=== PATIENT | female | born 1960 | race Caucasian/White ===

== ENCOUNTER 2017-01-20 07:30 | Day surgery (SDC) | payer OTHER ==
[~2017-01-20] VITALS: Ht 162.6 cm; Wt 143.0 kg
[~2017-01-20 07:30] MED LIST: 0.9% Sodium Chloride 1,000 ML IV SCH; HYDR25TA4 PO; IBUP800T28 PO; Sodium Chloride LOK Flush 10 mL Syringe IV PRN; fentaNYL-PF 50 mCg/mL 2 mL Inj IVPUSH PRN
[2017-01-20 07:55] VITALS: BP 147/84; PULSE 82; RESP 14; O2SAT 96
[2017-01-20] MEDS ORDERED: RANI150C4 PO (08:01)
[2017-01-20 09:07] VITALS: BP 129/68; PULSE 76; RESP 14; O2SAT 93
[2017-01-20 09:16] VITALS: BP 117/57; PULSE 78; RESP 16; O2SAT 100
[2017-01-20 09:20] VITALS: BP 117/57; PULSE 78; RESP 16; O2SAT 98
--- NOTE | 2017-01-20 09:36 | ENDO ---
[address] [address] ENDOSCOPY PROCEDURE PATIENT: BLAINE DELANEY : 1960 MR#: [id number] ADMIT: 01/20/2017 JOB ID: [id number] DATE OF SERVICE: 01/20/2017 PREOPERATIVE DIAGNOSIS(ES): 1. Gastroesophageal reflux disease. 2. Abdominal pain. 3. Colorectal cancer screening. POSTOPERATIVE DIAGNOSIS(ES): 1. Tiny hiatal hernia. 2. Normal colonoscopy to cecum. OPERATION: 1. Upper endoscopy with biopsy. 2. Colonoscopy to cecum. SURGEON: Eudar Phillips MD. INDICATIONS: A 56-year-old female with gastroesophageal reflux disease. She also has epigastric pain. She has had a previous cholecystectomy. She has morbid obesity. Her last colonoscopy was approximately seven years ago. After discussing options with the patient, it was elected to proceed with an upper endoscopy and a colonoscopy. FINDINGS: 1. The esophagus appeared normal. The GE junction was at 40 cm from the incisors and the esophageal hiatus at 40.5 cm which translates to a tiny to no hiatal hernia. 2. Cardia: Retroflexed views revealed a normal Hill I flap valve. 3. Fundus normal. 4. Body of the stomach normal. 5. Antrum normal. 6. Pylorus normal. 7. Duodenum to the second portion normal. 8. Colon and rectum to cecum normal. 9. Retroflexed views of the rectum normal. DESCRIPTION OF PROCEDURE: The procedure and sedation plan were discussed with the patient and nursing staff, and a procedural time-out was held. She gargled viscous Xylocaine. She received a total of 7 mg of Versed and 150 mcg of fentanyl for both procedures. The Olympus GIF-H180J video endoscope was passed transorally, advanced into the second portion of the duodenum, withdrawn, obtaining retroflexed views of the cardia with results as stated above. I did biopsies of the antrum and also of the GE junction but other than the tiny hiatal hernia there were no gross abnormalities. She was repositioned. A digital rectal exam was performed, and the Olympus PCF-H180AL video colonoscope was passed transanally, advanced to the cecum with clear visualization of cecal landmarks. I did not intubate the terminal ileum. She had a good prep. The scope was withdrawn over 6 minutes 11 seconds. Retroflexed views of the rectum were obtained. No biopsies were taken. There were no abnormalities. I saw no diverticula, inflammation, or neoplasia. IMPRESSION: 1. Very small hiatal hernia. 2. Normal colonoscopy. PLAN: CT scan of her abdomen has also been ordered. She will return to see me for discussion of results.
--- NOTE | 2017-01-24 14:09 | PATH ---
SURGICAL PATHOLOGY Attending Physician:Karan Hoyos CASE STATUS: Signed Out PATIENT NAME: BLAINE DELANEY PID: [id number] : 1960 DATE COLLECTED:01/20/2017 16:25 SPECIMEN: 1: Esophagus, Biopsy 2: Stomach, Antrum, Biopsy CLINICAL HISTORY: 1). GASTRO-ESOPHAGEAL JUNCTION BIOPSY 2). ANTRUM BIOPSY (RULE OUT H.PYLORI) FINAL DIAGNOSIS: 1. Gastroesophageal Junction, Biopsy: Squamocolumnar junctional mucosa with chronic focally active inflammation (of columnar component). Negative for intestinal metaplasia, dysplasia or malignancy. 2. Designated "Antrum", Biopsy: Gastric body mucosa with no diagnostic abnormality. Helicobacter organisms not identified. Negative for intestinal metaplasia, dysplasia or malignancy. ICD10: R10.13 GROSS DESCRIPTION: The specimen is received in two formalin filled containers labeled with the patient's name. 1). The specimen is labeled "GE junction" and consists of 5 portions of tissue which aggregate to 0.3 x 0.3 x 0.2 CM. The specimen is entirely submitted in cassette 1A. 2). The specimen is labeled "antrum" and consists of 2 portions of tissue which aggregate to 0.1 x 0.1 x 0.1 CM. The specimen is entirely submitted in cassette 2A. 01/20/2017DC ICD-9 CODES: CPT CODES: 1: 66359 2: 47334 Electronically Signed Out Lawrence Finley MD, Ph.D. [facility], [place] [address] Technical component performed at [facility], [facility] [address], [place], [address]
== END 2017-01-20 23:59 | disposition home or self-care (01) ==
LOC: END 07:30
PROVIDERS: ATTEND Surgery
DX: Z12.11 Encounter for screening for malignant neoplasm of colon (principal); Z86.010 Personal history of colon polyps; R10.13 Epigastric pain; K44.9 Diaphragmatic hernia without obstruction or gangrene; E78.5 Hyperlipidemia, unspecified; H81.10 Benign paroxysmal vertigo, unspecified ear; K21.9 Gastro-esophageal reflux disease without esophagitis; E66.01 Morbid (severe) obesity due to excess calories; Z68.43 Body mass index [BMI] 50.0-59.9, adult
CPT/HCPCS: 43239; 99153; G0105; G0500; J2250; J3010; J7030